=== PATIENT | female | born 1990 | race Caucasian/White ===

== ENCOUNTER → 2017-12-15 | Outpatient (REF) | LOC: M SMT 15:18 | DX: Z02.71 Encounter for disability determination (principal); M51.9 Unspecified thoracic, thoracolumbar and lumbosacral intervertebral disc disorder; Z97.5 Presence of (intrauterine) contraceptive device ==

== ENCOUNTER 2022-10-02 06:03 | Day surgery (SDC) | payer OTHER ==
[~2022-10-02] VITALS: Ht 154.9 cm; Wt 79.4 kg
[~2022-10-02 06:03] MED LIST: AMPICILLIN SOD/SULBACTAM SOD 3 GM in D5W MINI-BAG PLUS 100 ML IV ONE; MELA3TAB49 PO; OMEP40CA4 PO; PROP10TA56 PO; SERT50TA29 PO; TRAZ-252 PO
[2022-10-02] MEDS ORDERED: LR 1,000 ML IV SCH ×2 (06:20→09:10)
[2022-10-02] MEDS ORDERED: propofoL 200 MG/20 ML VIAL As Ordered ONE (07:04)
[2022-10-02] MEDS ORDERED: LIDOCAINE 2% 100MG/5ML SDV (FOR ANES.) As Ordered ONE (07:04)
[2022-10-02] MEDS ORDERED: ONDANSETRON 4MG 2ML VIAL As Ordered ONE (07:04)
[2022-10-02] MEDS ORDERED: SUGAMMADEX SODIUM 500 MG/5 ML VIAL (BRIDION) As Ordered ONE (07:04)
[2022-10-02] MEDS ORDERED: ROCURONIUM BROMIDE 50MG/5ML VIAL As Ordered ONE (07:04)
[2022-10-02] MEDS ORDERED: fentaNYL 100 MCG/2 ML INJECTION As Ordered ONE (07:09)
[2022-10-02] MEDS ORDERED: MIDAZOLAM INJ 2MG/2ML VIAL As Ordered ONE (07:09)
[2022-10-02] MEDS ORDERED: CHLORHEXIDINE GLUCONATE 0.12 % 15ML UDC (PERIDEX ORAL RINSE) As Ordered ONE (07:20)
[2022-10-02] MEDS: LIDOCAINE 2% W/ EPINEPHRINE 1.7 ML DENTAL INJ As Ordered ONE ×3 (07:20→08:45)
[2022-10-02] MEDS ORDERED: OXYMETAZOLINE 0.05% NASAL SPRAY (AFRIN) As Ordered ONE (07:20)
[2022-10-02] MEDS ORDERED: ACETAMINOPHEN 1000MG 100ML IV BAG As Ordered ONE (07:51)
[2022-10-02] MEDS: BUPIVACAINE LIPOSOME/PF 1.3% 20ML VIAL (13.3MG/ML)(EXPAREL) As Ordered ONE ×2 (08:06→09:10)
[2022-10-02] MEDS ORDERED: METOCLOPRAMIDE INJ 10MG/2ML VIAL IV PRN (09:10)
[2022-10-02] MEDS ORDERED: fentaNYL 100 MCG/2 ML INJECTION IV PRN (09:10)
[2022-10-02] MEDS ORDERED: MORPHINE 2 MG/ML 1ML VIAL IV PRN (09:10)
[2022-10-02] MEDS ORDERED: ONDANSETRON 4MG 2ML VIAL IV PRN (09:10)
[2022-10-02] MEDS ORDERED: oxyCODONE 5MG TAB PO PRN (09:10)
[2022-10-02 10:56] VITALS: BP 128/89
== END 2022-10-02 10:58 | disposition home or self-care (01) ==
LOC: M SDC 06:03
PROVIDERS: ATTEND Dentist
DX: K02.9 Dental caries, unspecified (principal); F17.220 Nicotine dependence, chewing tobacco, uncomplicated; F41.9 Anxiety disorder, unspecified; F32.A Depression, unspecified; Z79.899 Other long term (current) drug therapy; G43.909 Migraine, unspecified, not intractable, without status migrainosus
CPT/HCPCS: 81025; 88300; C9290; D7210; D7310; D9223; J1100; J2405